=== PATIENT | male | born 1990 | race Caucasian/White ===

== ENCOUNTER 2017-12-08 11:59 | Emergency (ER) | payer OTHER ==
[~2017-12-08] VITALS: Ht 182.9 cm; Wt 139.0 kg
[2017-12-08 12:10] VITALS: BP 139/95
--- NOTE | 2017-12-08 12:12 | NUR ---
PT AMBULATES TO BED 6
--- NOTE | 2017-12-08 12:14 | NUR ---
REPORT GIVEN TO NACHO MURILLO
--- NOTE | 2017-12-08 12:23 | NUR ---
PT. CAME INTO THE ED W C/O L LOWER BACK PAIN SINCE TODAY, PT. STATES " I WOKE UP WITH THE PAIN AND IT HURTS A LOT". PT. DENIES ANY NAUSEA AT THIS TIME , BUT DOES STATE HE VOMITED BECAUSE OF THE PAIN . PT. DENIES CP, SOB, DENIES COUGH, DENIES DIAHRRHEA, PT. AAOX4, PT. DENIES ANY ALLERGIES TO MEDICATION, HX OF KIDNEY STONES, BED IN LOWEST POSITION, RR EVEN AND UNLABORED. ER MD NOTIFIED. WILL CONTINUE TO MONITOR.
[2017-12-08] MEDS ORDERED: KETOROLAC 60 MG/2 ML VIAL IM ONE (12:50)
[2017-12-08 13:12] LABS: BASOPHILS # (AUTO) 0.1 K/uL (0.00-0.22); EOSINOPHILS # (AUTO) 0.4 K/uL (0-0.4); EOSINOPHILS % (AUTO) 4.2 % (0.0-4.0); HEMATOCRIT 42.1 % (36-52); LYMPHOCYTES # (AUTO) 3.1 K/uL (2.0-11.5); LYMPHOCYTES % (AUTO) 36.8 % (20.5-51.1); MEAN CORPUSCULAR HEMOGLOBIN 29 pg (27-31); MEAN CORPUSCULAR HGB CONC 36 g/dL (33-37); MEAN CORPUSCULAR VOLUME 82.1 fL (80-94); MONOCYTES # (AUTO) 0.7 K/uL (0.8-1.0); MONOCYTES % (AUTO) 8.3 % (1.7-9.3); NEUTROPHILS # (AUTO) 4.2 K/uL (1.8-7.7); NEUTROPHILS % (AUTO) 49.7 % (42.2-75.2); PLATELET COUNT (AUTO) 275 K/uL (140-450); RED BLOOD CELL COUNT(AUTO) 5.13 MIL/uL (4.20-6.10); WHITE BLOOD COUNT (AUTO) 8.4 K/uL (4.8-10.8)
[2017-12-08 13:21] LABS: ANION GAP 13.3 (8-16); CARBON DIOXIDE 25.6 mmol/L (21-32); CREATININE 1.1 mg/dL (0.7-1.3); POTASSIUM 3.9 mmol/L (3.5-5.1)
[2017-12-08 13:27] LABS: ALBUMIN 4.2 g/dL (3.4-5.0); TOTAL BILIRUBIN 0.6 mg/dL (0.0-1.0)
--- NOTE | 2017-12-08 13:40 | NUR ---
ULTRASOUND AT BEDSIDE .
--- NOTE | 2017-12-08 13:51 | NUR ---
PT. RESTING COMFORTABLY IN BED, RR EVEN AND UNLABORED, MOTHER AT BEDSIDE, WILL CONTINUE TO MONITOR.
[2017-12-08 14:52] VITALS: BP 130/86
--- NOTE | 2017-12-08 14:52 | NUR ---
Patient discharged with v/s stable. Written and verbal after care instructions given and explained. Patient alert, oriented and verbalized understanding of instructions. Ambulatory with steady gait. All questions addressed prior to discharge. ID band removed. Patient advised to follow up with PMD. Rx of MOTRIN, FLOMAX , AND NORCO 5-325 given. Patient educated on indication of medication including possible reaction and side effects. Opportunity to ask questions provided and answered.
== END 2017-12-08 14:52 | disposition home or self-care (01) ==
LOC: MED 11:59
DX: N23 Unspecified renal colic (principal); N13.30 Unspecified hydronephrosis; F12.10 Cannabis abuse, uncomplicated; Z87.442 Personal history of urinary calculi
CPT/HCPCS: 36415; 76770; 80053; 81002; 85025; 96372; 99285; J1885; Q0092